=== PATIENT | male | born 1955 | race Caucasian/White ===

== ENCOUNTER 2016-09-25 11:16 | Outpatient (RCR) | payer BC ==
--- OUTSIDE RECORDS SUMMARY | 2016-06-29 09:37 | XMS REPORT | Continuity of Care Document ---
Author Author [facility] Organization [facility] Address Unknown Phone Unavailable Care Team Providers Care Crushing Foreman Name Role Phone Magaly Page PCP [phone] Source Comments Some departments are not documenting in the electronic medical record. If you do not see the information that you expected, contact Release of Information in the Health Information Management department at [phone] for further assistance in locating additional records.[facility] Active Allergies and Adverse Reactions Allergen Noted Date Severity Reactions Comments Penicillins 12/05/2004 Medium Allergy recorded in SMS: PENNCILLIN~Reactions: SWELLING Sulfa (Sulfonamide 12/05/2004 Medium Allergy recorded in SMS: Antibiotics) Sulfa~Reactions: RASH Current Medications Prescription Sig. Disp. Refills Start End Date Status Date levothyroxine (SYNTHROID) 1 Tab daily. 90 Tab 3 01/22/20 Active 75 mcg tablet 14 rosuvastatin (CRESTOR) 40 Takes 40mg every 5 days Active mg tablet fluticasone (FLONASE) 50 Apply 2 Sprays to each Active mcg/actuation nasal spray nostril as directed daily. albuterol (VENTOLIN HFA, Inhale 2 Puffs by mouth Active PROAIR HFA) 90 every 6 hours as needed mcg/actuation inhaler for Wheezing. omeprazole DR(+) TAKE ONE CAPSULE BY MOUTH 180 Cap 2 01/27/20 Active (PRILOSEC) 40 mg capsule TWICE A DAY 30 MINUTES 16 BEFORE A MEAL levoFLOXacin (LEVAQUIN) Take 500 mg by mouth Active 500 mg tablet daily. 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 Symptoms improved for a week or so, but then his symptoms recurred and he has been hoarse since that time, hoarseness gets progessively worse throughout the day New left vocal cord paralysis 03/28/15: CT neck showed post-surgical changes in right hypopharynx and piriform sinus, no residual/recurrent mass, no LAD 05/26/15: PET showed development of small left paratracheal metabolically active LN, concerning for metastatic disease 06/06/15: Underwent CT guided FNA biopsy of left paratracheal nodule unsuccessful 06/28/15: S/p central neck dissection and left hemithyroid, frozen positive for SCCa, A. Fibrous tissue, "left paratracheal mass", resection: Metastatic squamous cell carcinoma. B. Thyroid, "left hemithyroid", left hemithyroidectomy:Benign thyroid tissue. C. Fibrous tissue, "left paratracheal mass #2", resection:Metastatic squamous cell carcinoma. D. Fibrous tissue, "left paratracheal mass", resection:Metastatic squamous cell carcinoma. L ast Assessment & Plan: He i shere medical oncology consultation. He is healign well after recent central neck dissection. No pain. I reviewed above reports, prior treatment and recent pathology. His current radiation field has overlap with prior 70 Gy radiation. Addition of concurrent chemotherapy likely will increase local toxicity (shortterm and usp) significantly for potential small benefit for local control. I discussed potential risk and benefit of additional chemotherapy, recommend radiation alone and follow up. I answered all questions and provided contact information if he has any further questions. Cavitary lesion of lung 11/17/2010 Dysphagia 11/17/2010 History of radiation therapy 11/17/2010 Most Recent Encounters Date Type Specialty Providers Description 05/22/2016 Telephone Otolaryngology Marlin Grace MD Follow-up Phone Call 05/02/2016 Orders Only Otolaryngology Marlin Graec MD Cancer of pyriform sinus (HCC) (Primary Dx) 05/02/2016 Documentation Otolaryngology Marlin Grace MD 04/27/2016 Office Visit Radiation Therapy Debby Arnold MD Cavitary lesion of lung (Primary Dx) 04/18/2016 Cancer Otolaryngology Marlin Grace MD Conference 04/11/2016 Hospital Radiology Debby Arnold MD Encounter 04/11/2016 Hospital Radiology Marlin Grace MD Encounter 04/11/2016 Screening Form 04/11/2016 Ancillary Radiation Therapy Debby Arnold MD Cancer of hypopharynx Orders (HCC) (Primary Dx) Social History Tobacco Use Types Packs/Day Years Used Date Former Smoker Cigarettes 2 20 Quit: 07/29/1979 Smokeless Tobacco: Never Used Alcohol Use Drinks/Week oz/Week Comments No Last Filed Vital Signs Vital Sign Reading Time Taken Blood Pressure 124/92 04/27/2016 9:47 AM CDT Pulse 74 04/27/2016 9:47 AM CDT Temperature 36.6 C (97.9 F) 04/27/2016 9:47 AM CDT Respiratory Rate 18 01/19/2016 11:25 AM CDT Height 1.676 m (5' 5.98") 04/27/2016 9:47 AM CDT Weight 76.658 kg (169 lb) 04/27/2016 9:47 AM CDT Body Mass Index 27.29 04/27/2016 9:47 AM CDT Oxygen Saturation 100% 04/27/2016 9:47 AM CDT Plan of Care Health Maintenance Due Date Last Done Comments Hepatitis C Screening 1954 Physical (Comprehensive) 1961 Exam Pertussis Vaccine 1965 Tetanus Vaccine 1971 Colorectal Cancer 2004 Screening Shingles Vaccine 2014 Influenza Vaccine 03/29/2016 Results from Last 3 Months NM PET SCAN TORSO (SKULL-THIGHS) (04/11/2016 12:14 PM) Impressions 1.Persistent focal increased uptake involving a left paratracheal soft tissue nodule which may represent recurrent neoplasm. 2.Area of increased uptake in the region of the right vocal cords which is unchanged from prior study and likely posttherapeutic in nature. 3.No scintigraphic evidence of regional jacqueline or distant metastases. Approved by Flynn Gutiérrez M.D. on 04/11/2016 3:08 PM By my electronic signature, I attest that I have personally reviewed the images for this examination and formulated the interpretations and opinions expressed in this report Finalized by Prashant Fermin M.D. on 04/11/2016 5:16 PM. Dictated by Flynn Gutiérrez M.D. on 04/11/2016 1:43 PM. Narrative PET/CT NECK, CHEST, ABDOMEN AND PELVIS CLINICAL HISTORY: 60-year-old male, history of recurrent H&N cancer, s/p surgery and XRT x 2. History of radiation therapy. Hoarseness of voice. Bilateral vocal cord paralysis. RADIOPHARMACEUTICAL: 16.6 mCi IV Fluorine-18 fluorodeoxyglucose (FDG) BLOOD GLUCOSE LEVEL AT THE TIME OF RADIOPHARMACEUTICAL ADMINISTRATION: 95 mg / dL TECHNIQUE: Routine PET images ranging from the base of the skull to the upper thighs were obtained 60 minutes after IV administration of F-18 Fluorodeoxyglucose (FDG). PET images were reviewed in standard orthogonal projections. Low dose non- contrast CT imaging was performed for attenuation correction and localization purposes. COMPARISON: PET/CT from May 26, 2015 FINDINGS: Mean hepatic SUV 2.39, previously 2.78. Physiologic uptake of F-18 Fluorodeoxyglucose (FDG) tracer is seen within the brain, heart, kidneys, bladder, and bowel. Head / Neck: Interval left hemithyroidectomy and neck dissection. Focal area of increased uptake in the left paratracheal region that corresponds to left paratracheal soft tissue nodule on attenuated CT images measuring maximum SUV of 6.56 (index 245) previously 6.22. There is mild asymmetric uptake adjacent to the right vocal cords measuring maximum SUV of 6.73 (index 205) compared to 6.4 previously which is likely posttherapeutic in nature. Chest: No metabolically active nodes are visualized in the chest. Abdomen / Pelvis: No metabolically active nodes are visualized in the abdomen or pelvis. Osseous Structures: No metabolically active areas are visualized in the osseous structures. Additional low-dose CT findings: Calcified coronary artery disease. Dependent atelectasis in both lung bases. Calcified granuloma in the right upper lobe. Residual contrast noted throughout the renal collecting system. Procedure Note Interface, Radiant Results - SatApr 11, 2016 5:19 PM CDT PET/CT NECK, CHEST, ABDOMEN AND PELVIS CLINICAL HISTORY: 60-year-old male, history of recurrent H&N cancer, s/p surgery and XRT x 2. History of radiation therapy. Hoarseness of voice. Bilateral vocal cord paralysis. RADIOPHARMACEUTICAL: 16.6 mCi IV Fluorine-18 fluorodeoxyglucose (FDG) BLOOD GLUCOSE LEVEL AT THE TIME OF RADIOPHARMACEUTICAL ADMINISTRATION: 95 mg / dL TECHNIQUE: Routine PET images ranging from the base of the skull to the upper thighs were obtained 60 minutes after IV administration of F-18 Fluorodeoxyglucose (FDG). PET images were reviewed in standard orthogonal projections. Low dose non- contrast CT imaging was performed for attenuation correction and localization purposes. COMPARISON: PET/CT from May 26, 2015 FINDINGS: Mean hepatic SUV 2.39, previously 2.78. Physiologic uptake of F-18 Fluorodeoxyglucose (FDG) tracer is seen within the brain, heart, kidneys, bladder, and bowel. Head / Neck: Interval left hemithyroidectomy and neck dissection. Focal area of increased uptake in the left paratracheal region that corresponds to left paratracheal soft tissue nodule on attenuated CT images measuring maximum SUV of 6.56 (index 245) previously 6.22. There is mild asymmetric uptake adjacent to the right vocal cords measuring maximum SUV of 6.73 (index 205) compared to 6.4 previously which is likely posttherapeutic in nature. Chest: No metabolically active nodes are visualized in the chest. Abdomen / Pelvis: No metabolically active nodes are visualized in the abdomen or pelvis. Osseous Structures: No metabolically active areas are visualized in the osseous structures. Additional low-dose CT findings: Calcified coronary artery disease. Dependent atelectasis in both lung bases. Calcified granuloma in the right upper lobe. Residual contrast noted throughout the renal collecting system. IMPRESSION 1. Persistent focal increased uptake involving a left paratracheal soft tissue nodule which may represent recurrent neoplasm. 2. Area of increased uptake in the region of the right vocal cords which is unchanged from prior study and likely posttherapeutic in nature. 3. No scintigraphic evidence of regional jacqueline or distant metastases. Approved by Flynn Gutiérrez M.D. on 04/11/2016 3:08 PM By my electronic signature, I attest that I have personally reviewed the images for this examination and formulated the interpretations and opinions expressed in this report Finalized by Prashant Fermin M.D. on 04/11/2016 5:16 PM. Dictated by Flynn Gutiérrez M.D. on 04/11/2016 1:[address] NECK W CONTRAST (04/11/2016 12:03 PM) Impressions 1. Stable appearance to the patient's neck CT scan. No evidence for lymphadenopathy or recurrent neck mass. 2. Stable appearance to left medial deviation of the vocal cord and aryepiglottic fold compatible with vocal cord paralysis. Finalized by Humble Melton M.D. on 04/11/2016 3:35 PM. Dictated by Humble Melton M.D. on 04/11/2016 3:[address] Neck with Contrast Clinical Indication: Male, 60 years old. Hypopharyngeal carcinoma, dysphonia Technique: Multiple contiguous axial images were obtained through the neck following the administration of IV contrast material. Post processing coronal and sagittal reconstruction images were made from the axial images. Comparison: January 19, 2016 Findings: Brain and Orbits: Normal. Sinuses and Mastoids: Normal. Suprahyoid Neck: Normal oral cavity, oropharynx, parapharyngeal space, and retropharyngeal space. Infrahyoid Neck: Prior right neck dissection. Similar appearance to asymmetry of the vocal cords with medialization of the left true vocal cord and aryepiglottic fold. Stable effacement of the right piriform sinus. Lymph Nodes: Normal. Parotid and Submandibular Glands: Normal. Thyroid: Left hemithyroidectomy with some soft tissue thickening related to postsurgical change similar to prior study. Vasculature: Mild atherosclerotic plaque at the origin of the right internal carotid artery and mid left common carotid artery with no high-grade stenosis. Osseous Structures: Moderate degenerative disc disease C5-6, C6-7. No aggressive lesion identified. Thoracic inlet: Normal upper lungs and mediastinum. Procedure Note Interface, Radiant Results - SatApr 11, 2016 3:[address] Neck with Contrast Clinical Indication: Male, 60 years old. Hypopharyngeal carcinoma, dysphonia Technique: Multiple contiguous axial images were obtained through the neck following the administration of IV contrast material. Post processing coronal and sagittal reconstruction images were made from the axial images. Comparison: January 19, 2016 Findings: Brain and Orbits: Normal. Sinuses and Mastoids: Normal. Suprahyoid Neck: Normal oral cavity, oropharynx, parapharyngeal space, and retropharyngeal space. Infrahyoid Neck: Prior right neck dissection. Similar appearance to asymmetry of the vocal cords with medialization of the left true vocal cord and aryepiglottic fold. Stable effacement of the right piriform sinus. Lymph Nodes: Normal. Parotid and Submandibular Glands: Normal. Thyroid: Left hemithyroidectomy with some soft tissue thickening related to postsurgical change similar to prior study. Vasculature: Mild atherosclerotic plaque at the origin of the right internal carotid artery and mid left common carotid artery with no high-grade stenosis. Osseous Structures: Moderate degenerative disc disease C5-6, C6-7. No aggressive lesion identified. Thoracic inlet: Normal upper lungs and mediastinum. IMPRESSION 1. Stable appearance to the patient's neck CT scan. No evidence for lymphadenopathy or recurrent neck mass. 2. Stable appearance to left medial deviation of the vocal cord and aryepiglottic fold compatible with vocal cord paralysis. Finalized by Humble Melton M.D. on 04/11/2016 3:35 PM. Dictated by Humble Melton M.D. on 04/11/2016 3:20 PM. POC CREATININE, RAD (04/11/2016 11:06 AM) Component Value Range Creatinine, POC 1.2 0.4-1.24 MG/DL
[2016-07-11 09:05] LABS: BASOPHILS % (AUTO) 0 % (0-10); EOSINOPHILS % (AUTO) 0 % (0-10); LYMPHOCYTES # (AUTO) 0.5 X 10^3 (1.0-4.0); LYMPHOCYTES % (AUTO) 4 % (12-44); MEAN CORPUSCULAR HEMOGLOBIN 29 PG (25-34); MEAN CORPUSCULAR HGB CONC 34 G/DL (32-36); MEAN CORPUSCULAR VOLUME 84 FL (80-99); MONOCYTES # (AUTO) 0.2 X 10^3 (0.0-1.0); MONOCYTES % (AUTO) 2 % (0-12); NEUTROPHILS # (AUTO) 10.2 X 10^3 (1.8-7.8); NEUTROPHILS % (AUTO) 94 % (42-75); PLATELET COUNT 306 10^3/uL (130-400); RED BLOOD COUNT 4.99 10^6/uL (4.35-5.85); RED CELL DISTRIBUTION WIDTH 14.1 % (10.0-14.5); WHITE BLOOD COUNT 10.8 10^3/uL (4.3-11.0)
[2016-07-11 09:45] LABS: ALANINE AMINOTRANSFERASE 41 U/L (0-55); ALBUMIN 4.7 G/DL (3.2-4.5); ANION GAP 10 MMOL/L (5-14); ASPARTATE AMINO TRANSFERASE 32 U/L (5-34); BILIRUBIN,TOTAL 0.3 MG/DL (0.1-1.0); BLOOD UREA NITROGEN 16 MG/DL (7-18); BUN/CREATININE RATIO 17; CALCIUM 9.5 MG/DL (8.5-10.1); CARBON DIOXIDE 22 MMOL/L (21-32); CHLORIDE 100 MMOL/L (98-107); CREATININE SERUM 0.95 MG/DL (0.60-1.30); GFR ESTIMATED > 60; GLUCOSE 133 MG/DL (70-105); MAGNESIUM 2.2 MG/DL (1.8-2.4); POTASSIUM 4.4 MMOL/L (3.6-5.0); SODIUM 132 MMOL/L (135-145); TOTAL PROTEIN 7.2 G/DL (6.4-8.2)
[2016-07-18 11:20] LABS: BASOPHILS # (AUTO) 0.1 10^3/uL (0.0-0.1); BASOPHILS % (AUTO) 2 % (0-10); EOSINOPHILS # (AUTO) 0.1 10^3/uL (0.0-0.3); EOSINOPHILS % (AUTO) 2 % (0-10); LYMPHOCYTES # (AUTO) 0.8 X 10^3 (1.0-4.0); LYMPHOCYTES % (AUTO) 26 % (12-44); MEAN CORPUSCULAR HEMOGLOBIN 28 PG (25-34); MEAN CORPUSCULAR HGB CONC 34 G/DL (32-36); MEAN CORPUSCULAR VOLUME 84 FL (80-99); MONOCYTES # (AUTO) 0.3 X 10^3 (0.0-1.0); MONOCYTES % (AUTO) 10 % (0-12); NEUTROPHILS # (AUTO) 1.8 X 10^3 (1.8-7.8); NEUTROPHILS % (AUTO) 60 % (42-75); PLATELET COUNT 172 10^3/uL (130-400); RED BLOOD COUNT 4.68 10^6/uL (4.35-5.85); RED CELL DISTRIBUTION WIDTH 14.3 % (10.0-14.5); WHITE BLOOD COUNT 2.9 10^3/uL (4.3-11.0)
[2016-07-18 12:14] LABS: CALCIUM 9.2 MG/DL (8.5-10.1); CREATININE SERUM 1.29 MG/DL (0.60-1.30); POTASSIUM 5.5 MMOL/L (3.6-5.0)
[2016-07-25 10:46] LABS: BASOPHILS # (AUTO) 0.1 10^3/uL (0.0-0.1); BASOPHILS % (AUTO) 1 % (0-10); EOSINOPHILS % (AUTO) 0 % (0-10); LYMPHOCYTES # (AUTO) 0.5 X 10^3 (1.0-4.0); LYMPHOCYTES % (AUTO) 11 % (12-44); MEAN CORPUSCULAR HEMOGLOBIN 29 PG (25-34); MEAN CORPUSCULAR HGB CONC 34 G/DL (32-36); MEAN CORPUSCULAR VOLUME 85 FL (80-99); MEAN PLATELET VOLUME 9.1 FL (7.4-10.4); MONOCYTES # (AUTO) 1.3 X 10^3 (0.0-1.0); MONOCYTES % (AUTO) 28 % (0-12); NEUTROPHILS # (AUTO) 2.8 X 10^3 (1.8-7.8); NEUTROPHILS % (AUTO) 60 % (42-75); PLATELET COUNT 214 10^3/uL (130-400); RED BLOOD COUNT 4.34 10^6/uL (4.35-5.85); RED CELL DISTRIBUTION WIDTH 14.3 % (10.0-14.5); WHITE BLOOD COUNT 4.7 10^3/uL (4.3-11.0)
[2016-07-25 11:10] LABS: ANION GAP 8 MMOL/L (5-14); BLOOD UREA NITROGEN 19 MG/DL (7-18); BUN/CREATININE RATIO 16; CALCIUM 9.1 MG/DL (8.5-10.1); CARBON DIOXIDE 26 MMOL/L (21-32); CHLORIDE 101 MMOL/L (98-107); CREATININE SERUM 1.19 MG/DL (0.60-1.30); GFR ESTIMATED > 60; GLUCOSE 92 MG/DL (70-105); POTASSIUM 5.2 MMOL/L (3.6-5.0); SODIUM 135 MMOL/L (135-145)
[2016-08-01 13:12] LABS: BASOPHILS % (AUTO) 0 % (0-10); EOSINOPHILS % (AUTO) 0 % (0-10); LYMPHOCYTES # (AUTO) 0.5 X 10^3 (1.0-4.0); LYMPHOCYTES % (AUTO) 3 % (12-44); MEAN CORPUSCULAR HEMOGLOBIN 28 PG (25-34); MEAN CORPUSCULAR HGB CONC 34 G/DL (32-36); MEAN CORPUSCULAR VOLUME 83 FL (80-99); MEAN PLATELET VOLUME 8.6 FL (7.4-10.4); MONOCYTES # (AUTO) 0.2 X 10^3 (0.0-1.0); MONOCYTES % (AUTO) 1 % (0-12); NEUTROPHILS # (AUTO) 16.4 X 10^3 (1.8-7.8); NEUTROPHILS % (AUTO) 96 % (42-75); PLATELET COUNT 267 10^3/uL (130-400); RED BLOOD COUNT 4.14 10^6/uL (4.35-5.85); RED CELL DISTRIBUTION WIDTH 14.3 % (10.0-14.5); WHITE BLOOD COUNT 17.1 10^3/uL (4.3-11.0)
[2016-08-01 13:40] LABS: ALANINE AMINOTRANSFERASE 25 U/L (0-55); ALBUMIN 4.5 G/DL (3.2-4.5); ANION GAP 10 MMOL/L (5-14); ASPARTATE AMINO TRANSFERASE 20 U/L (5-34); BILIRUBIN,TOTAL 0.3 MG/DL (0.1-1.0); BLOOD UREA NITROGEN 24 MG/DL (7-18); BUN/CREATININE RATIO 21; CALCIUM 9.4 MG/DL (8.5-10.1); CARBON DIOXIDE 22 MMOL/L (21-32); CHLORIDE 102 MMOL/L (98-107); CREATININE SERUM 1.17 MG/DL (0.60-1.30); GFR ESTIMATED > 60; GLUCOSE 165 MG/DL (70-105); MAGNESIUM 2.4 MG/DL (1.8-2.4); POTASSIUM 4.1 MMOL/L (3.6-5.0); SODIUM 134 MMOL/L (135-145); TOTAL PROTEIN 6.9 G/DL (6.4-8.2)
[2016-08-08 10:51] LABS: BASOPHILS % (AUTO) 1 % (0-10); EOSINOPHILS # (AUTO) 0.1 10^3/uL (0.0-0.3); EOSINOPHILS % (AUTO) 5 % (0-10); LYMPHOCYTES # (AUTO) 0.7 X 10^3 (1.0-4.0); LYMPHOCYTES % (AUTO) 36 % (12-44); MEAN CORPUSCULAR HEMOGLOBIN 28 PG (25-34); MEAN CORPUSCULAR HGB CONC 34 G/DL (32-36); MEAN CORPUSCULAR VOLUME 83 FL (80-99); MEAN PLATELET VOLUME 9.6 FL (7.4-10.4); MONOCYTES # (AUTO) 0.2 X 10^3 (0.0-1.0); MONOCYTES % (AUTO) 11 % (0-12); NEUTROPHILS # (AUTO) 0.9 X 10^3 (1.8-7.8); NEUTROPHILS % (AUTO) 47 % (42-75); PLATELET COUNT 204 10^3/uL (130-400); RED BLOOD COUNT 4.25 10^6/uL (4.35-5.85); RED CELL DISTRIBUTION WIDTH 14.1 % (10.0-14.5); WHITE BLOOD COUNT 1.8 10^3/uL (4.3-11.0)
[2016-08-08 12:06] LABS: CALCIUM 9.6 MG/DL (8.5-10.1); CREATININE SERUM 1.29 MG/DL (0.60-1.30); POTASSIUM 5.5 MMOL/L (3.6-5.0)
[2016-08-29 13:07] LABS: BASOPHILS % (AUTO) 0 % (0-10); EOSINOPHILS % (AUTO) 0 % (0-10); LYMPHOCYTES # (AUTO) 0.4 X 10^3 (1.0-4.0); LYMPHOCYTES % (AUTO) 5 % (12-44); MEAN CORPUSCULAR HEMOGLOBIN 29 PG (25-34); MEAN CORPUSCULAR HGB CONC 34 G/DL (32-36); MEAN CORPUSCULAR VOLUME 85 FL (80-99); MEAN PLATELET VOLUME 8.3 FL (7.4-10.4); MONOCYTES # (AUTO) 0.1 X 10^3 (0.0-1.0); MONOCYTES % (AUTO) 1 % (0-12); NEUTROPHILS # (AUTO) 7.1 X 10^3 (1.8-7.8); NEUTROPHILS % (AUTO) 94 % (42-75); PLATELET COUNT 299 10^3/uL (130-400); RED BLOOD COUNT 3.81 10^6/uL (4.35-5.85); WHITE BLOOD COUNT 7.5 10^3/uL (4.3-11.0)
[2016-08-29 13:31] LABS: ALANINE AMINOTRANSFERASE 17 U/L (0-55); ALBUMIN 4.4 G/DL (3.2-4.5); ANION GAP 10 MMOL/L (5-14); ASPARTATE AMINO TRANSFERASE 19 U/L (5-34); BILIRUBIN,TOTAL 0.3 MG/DL (0.1-1.0); BLOOD UREA NITROGEN 17 MG/DL (7-18); BUN/CREATININE RATIO 16; CARBON DIOXIDE 23 MMOL/L (21-32); CHLORIDE 101 MMOL/L (98-107); CREATININE SERUM 1.07 MG/DL (0.60-1.30); GFR ESTIMATED > 60; GLUCOSE 191 MG/DL (70-105); POTASSIUM 4.3 MMOL/L (3.6-5.0); SODIUM 134 MMOL/L (135-145); TOTAL PROTEIN 6.6 G/DL (6.4-8.2)
[2016-08-29 13:52] LABS: THYROID STIMULATING HORMONE 10.26 UIU/ML (0.35-4.94)
[2016-09-05 10:38] LABS: BASOPHILS % (AUTO) 1 % (0-10); EOSINOPHILS % (AUTO) 1 % (0-10); LYMPHOCYTES # (AUTO) 0.7 X 10^3 (1.0-4.0); LYMPHOCYTES % (AUTO) 27 % (12-44); MEAN CORPUSCULAR HEMOGLOBIN 29 PG (25-34); MEAN CORPUSCULAR HGB CONC 34 G/DL (32-36); MEAN CORPUSCULAR VOLUME 85 FL (80-99); MEAN PLATELET VOLUME 8.3 FL (7.4-10.4); MONOCYTES # (AUTO) 0.3 X 10^3 (0.0-1.0); MONOCYTES % (AUTO) 11 % (0-12); NEUTROPHILS # (AUTO) 1.5 X 10^3 (1.8-7.8); NEUTROPHILS % (AUTO) 60 % (42-75); PLATELET COUNT 231 10^3/uL (130-400); RED BLOOD COUNT 3.46 10^6/uL (4.35-5.85); RED CELL DISTRIBUTION WIDTH 15.4 % (10.0-14.5); WHITE BLOOD COUNT 2.5 10^3/uL (4.3-11.0)
[2016-09-05 11:14] LABS: ANION GAP 10 MMOL/L (5-14); BLOOD UREA NITROGEN 26 MG/DL (7-18); BUN/CREATININE RATIO 26; CALCIUM 9.2 MG/DL (8.5-10.1); CARBON DIOXIDE 27 MMOL/L (21-32); CHLORIDE 98 MMOL/L (98-107); GFR ESTIMATED > 60; GLUCOSE 85 MG/DL (70-105); SODIUM 135 MMOL/L (135-145)
[2016-09-05 11:37] LABS: THYROID STIMULATING HORMONE 30.11 UIU/ML (0.35-4.94)
[2016-09-11 13:26] LABS: BASOPHILS % (AUTO) 1 % (0-10); EOSINOPHILS % (AUTO) 0 % (0-10); LYMPHOCYTES # (AUTO) 0.8 X 10^3 (1.0-4.0); LYMPHOCYTES % (AUTO) 30 % (12-44); MEAN CORPUSCULAR HEMOGLOBIN 29 PG (25-34); MEAN CORPUSCULAR HGB CONC 33 G/DL (32-36); MEAN CORPUSCULAR VOLUME 88 FL (80-99); MEAN PLATELET VOLUME 8.3 FL (7.4-10.4); MONOCYTES # (AUTO) 0.8 X 10^3 (0.0-1.0); MONOCYTES % (AUTO) 32 % (0-12); NEUTROPHILS % (AUTO) 38 % (42-75); PLATELET COUNT 211 10^3/uL (130-400); RED BLOOD COUNT 3.29 10^6/uL (4.35-5.85); RED CELL DISTRIBUTION WIDTH 16.5 % (10.0-14.5); WHITE BLOOD COUNT 2.7 10^3/uL (4.3-11.0)
[2016-09-11 13:52] LABS: ALANINE AMINOTRANSFERASE 24 U/L (0-55); ALBUMIN 4.2 G/DL (3.2-4.5); ANION GAP 10 MMOL/L (5-14); ASPARTATE AMINO TRANSFERASE 27 U/L (5-34); BILIRUBIN,TOTAL 0.2 MG/DL (0.1-1.0); BLOOD UREA NITROGEN 16 MG/DL (7-18); BUN/CREATININE RATIO 16; CARBON DIOXIDE 25 MMOL/L (21-32); CHLORIDE 102 MMOL/L (98-107); CREATININE SERUM 1.02 MG/DL (0.60-1.30); GFR ESTIMATED > 60; GLUCOSE 106 MG/DL (70-105); POTASSIUM 4.2 MMOL/L (3.6-5.0); SODIUM 137 MMOL/L (135-145); TOTAL PROTEIN 6.4 G/DL (6.4-8.2)
[2016-09-19 13:43] LABS: BASOPHILS % (AUTO) 0 % (0-10); EOSINOPHILS % (AUTO) 0 % (0-10); LYMPHOCYTES # (AUTO) 1.1 X 10^3 (1.0-4.0); LYMPHOCYTES % (AUTO) 11 % (12-44); MEAN CORPUSCULAR HEMOGLOBIN 30 PG (25-34); MEAN CORPUSCULAR HGB CONC 34 G/DL (32-36); MEAN CORPUSCULAR VOLUME 89 FL (80-99); MONOCYTES # (AUTO) 0.8 X 10^3 (0.0-1.0); MONOCYTES % (AUTO) 7 % (0-12); NEUTROPHILS # (AUTO) 8.6 X 10^3 (1.8-7.8); NEUTROPHILS % (AUTO) 82 % (42-75); PLATELET COUNT 181 10^3/uL (130-400); RED BLOOD COUNT 3.19 10^6/uL (4.35-5.85); WHITE BLOOD COUNT 10.5 10^3/uL (4.3-11.0)
[2016-09-19 14:09] LABS: ALANINE AMINOTRANSFERASE 21 U/L (0-55); ALBUMIN 4.2 G/DL (3.2-4.5); ANION GAP 11 MMOL/L (5-14); ASPARTATE AMINO TRANSFERASE 18 U/L (5-34); BILIRUBIN,TOTAL 0.2 MG/DL (0.1-1.0); BLOOD UREA NITROGEN 24 MG/DL (7-18); BUN/CREATININE RATIO 23; CALCIUM 8.8 MG/DL (8.5-10.1); CARBON DIOXIDE 24 MMOL/L (21-32); CHLORIDE 101 MMOL/L (98-107); CREATININE SERUM 1.03 MG/DL (0.60-1.30); GFR ESTIMATED > 60; GLUCOSE 111 MG/DL (70-105); POTASSIUM 3.4 MMOL/L (3.6-5.0); SODIUM 136 MMOL/L (135-145); TOTAL PROTEIN 6.1 G/DL (6.4-8.2)
[2016-09-19 14:29] LABS: THYROID STIMULATING HORMONE 25.64 UIU/ML (0.35-4.94)
[~2016-09-25] VITALS: Ht 167.6 cm; Wt 79.8 kg
[~2016-09-25 11:16] MED LIST: ALB0.5V; CARBOPLATIN IV SCH; CYCL10TA9 PO; D5W IV SCH; DEXA4TAB PO; DOCETAXEL IV SCH; FAMOTIDINE 20MG/2ML IV (CANCER CTR) IV SCH; FOSAPREPITANT 150 MG/NS 150 MG IVPB (CANCER CTR) IV PRN; HYDR-3729 PO; LEVO75TA6 PO; NFPRILOC40 PO; NORMAL SALINE IV SCH; NS IV 500 ML (CANCER CENTER) IV SCH; PALONOSETRON 0.25 MG, DEXAMETHASONE 10 MG/NS 50 ML IVPB IV PRN; diphenhydrAMINE 25 MG TAB (BENADRYL) CANCER CENTER PO SCH
[2016-09-25 11:32] LABS: BASOPHILS # (AUTO) 0.1 10^3/uL (0.0-0.1); BASOPHILS % (AUTO) 2 % (0-10); EOSINOPHILS # (AUTO) 0.1 10^3/uL (0.0-0.3); EOSINOPHILS % (AUTO) 3 % (0-10); LYMPHOCYTES # (AUTO) 0.7 X 10^3 (1.0-4.0); LYMPHOCYTES % (AUTO) 23 % (12-44); MEAN CORPUSCULAR HEMOGLOBIN 30 PG (25-34); MEAN CORPUSCULAR HGB CONC 34 G/DL (32-36); MEAN CORPUSCULAR VOLUME 87 FL (80-99); MEAN PLATELET VOLUME 9.1 FL (7.4-10.4); MONOCYTES # (AUTO) 0.1 X 10^3 (0.0-1.0); MONOCYTES % (AUTO) 5 % (0-12); NEUTROPHILS # (AUTO) 2.1 X 10^3 (1.8-7.8); NEUTROPHILS % (AUTO) 68 % (42-75); PLATELET COUNT 186 10^3/uL (130-400); RED BLOOD COUNT 3.41 10^6/uL (4.35-5.85); RED CELL DISTRIBUTION WIDTH 16.6 % (10.0-14.5); WHITE BLOOD COUNT 3.1 10^3/uL (4.3-11.0)
[2016-09-25 12:01] LABS: ANION GAP 10 MMOL/L (5-14); BLOOD UREA NITROGEN 20 MG/DL (7-18); BUN/CREATININE RATIO 21; CARBON DIOXIDE 25 MMOL/L (21-32); CHLORIDE 96 MMOL/L (98-107); CREATININE SERUM 0.95 MG/DL (0.60-1.30); GFR ESTIMATED > 60; GLUCOSE 91 MG/DL (70-105); POTASSIUM 5.1 MMOL/L (3.6-5.0); SODIUM 131 MMOL/L (135-145)
== END 2016-09-27 | disposition home or self-care (01) ==
LOC: ONC 11:16
PROVIDERS: ATTEND Internal Medicine Hematology & Oncology
DX: Z51.11 Encounter for antineoplastic chemotherapy (principal); C14.0 Malignant neoplasm of pharynx, unspecified; E89.0 Postprocedural hypothyroidism; D64.9 Anemia, unspecified; K21.9 Gastro-esophageal reflux disease without esophagitis; Z87.891 Personal history of nicotine dependence; Z92.3 Personal history of irradiation; Z79.899 Other long term (current) drug therapy
CPT/HCPCS: 36415; 36591; 80048; 80053; 82274; 82728; 83540; 83735; 84443; 85025; 96367; 96375; 96413; 96417; 99213; 99214

== ENCOUNTER → 2017-01-01 | Outpatient (RCR) | payer BC ==
--- OUTSIDE RECORDS SUMMARY | 2016-10-03 14:34 | XMS REPORT | Continuity of Care Document ---
Author Author [facility] Organization [facility] Address Unknown Phone Unavailable Care Team Providers Care Chain Puller Name Role Phone Magaly Page PCP [phone] Source Comments Some departments are not documenting in the electronic medical record. If you do not see the information that you expected, contact Release of Information in the Health Information Management department at [phone] for further assistance in locating additional records.[facility] Active Allergies and Adverse Reactions Allergen [...] hours as needed mcg/actuation inhaler for Wheezing. azithromycin (ZITHROMAX) Z-PHILIPPE: Take 2 tabs by 6 Tab 0 08/01/19 Active 250 mg tablet mouth on day 1, followed 17 by 1 tab by mouth daily on days 2-5. omeprazole DR(+) TAKE ONE CAPSULE BY MOUTH [...] - Diagnosed approximately 2003, s/p MRND - 2006: Recurrence, s/p laser excision, followed by Radiation therapy 70 Gy over 35 fractions, received no chemotherapy Left central neck lesion 10/2014: Patient began to have issues with his voice, initially treated with allergy medication, then z-philippe. Symptoms improved for a week or so, [...] likely will increase local toxicity (shortterm and shelter) significantly for potential small benefit for local control. I discussed potential risk and benefit of additional chemotherapy, recommend radiation alone and follow up. I answered all questions and provided contact information if he has any further questions. Cavitary lesion of lung 11/17/2010 Dysphagia 11/17/2010 History of radiation therapy 11/17/2010 Social History Tobacco Use Types Packs/Day Years [...] 2004 Screening Shingles Vaccine 2014 Influenza Vaccine 03/29/2017 Results from Last 3 Months Not on file
[2016-10-03 14:46] LABS: BASOPHILS % (AUTO) 0 % (0-10); EOSINOPHILS % (AUTO) 0 % (0-10); LYMPHOCYTES % (AUTO) 44 % (12-44); MEAN CORPUSCULAR HEMOGLOBIN 30 PG (25-34); MEAN CORPUSCULAR HGB CONC 34 G/DL (32-36); MEAN CORPUSCULAR VOLUME 89 FL (80-99); MEAN PLATELET VOLUME 8.5 FL (7.4-10.4); MONOCYTES # (AUTO) 0.9 X 10^3 (0.0-1.0); MONOCYTES % (AUTO) 39 % (0-12); NEUTROPHILS # (AUTO) 0.4 X 10^3 (1.8-7.8); NEUTROPHILS % (AUTO) 16 % (42-75); PLATELET COUNT 214 10^3/uL (130-400); RED BLOOD COUNT 2.88 10^6/uL (4.35-5.85); RED CELL DISTRIBUTION WIDTH 17.2 % (10.0-14.5); WHITE BLOOD COUNT 2.3 10^3/uL (4.3-11.0)
[2016-10-03 15:28] LABS: ANION GAP 10 MMOL/L (5-14); BLOOD UREA NITROGEN 14 MG/DL (7-18); BUN/CREATININE RATIO 14; CALCIUM 8.8 MG/DL (8.5-10.1); CARBON DIOXIDE 26 MMOL/L (21-32); CHLORIDE 100 MMOL/L (98-107); CREATININE SERUM 1.03 MG/DL (0.60-1.30); GFR ESTIMATED > 60; GLUCOSE 102 MG/DL (70-105); POTASSIUM 4.3 MMOL/L (3.6-5.0); SODIUM 136 MMOL/L (135-145)
[2016-10-10 15:01] LABS: BASOPHILS % (AUTO) 0 % (0-10); EOSINOPHILS % (AUTO) 1 % (0-10); LYMPHOCYTES # (AUTO) 1.1 X 10^3 (1.0-4.0); LYMPHOCYTES % (AUTO) 18 % (12-44); MEAN CORPUSCULAR HEMOGLOBIN 30 PG (25-34); MEAN CORPUSCULAR HGB CONC 33 G/DL (32-36); MEAN CORPUSCULAR VOLUME 91 FL (80-99); MEAN PLATELET VOLUME 8.7 FL (7.4-10.4); MONOCYTES # (AUTO) 0.7 X 10^3 (0.0-1.0); MONOCYTES % (AUTO) 12 % (0-12); NEUTROPHILS # (AUTO) 4.4 X 10^3 (1.8-7.8); NEUTROPHILS % (AUTO) 70 % (42-75); PLATELET COUNT 167 10^3/uL (130-400); RED BLOOD COUNT 3.09 10^6/uL (4.35-5.85); RED CELL DISTRIBUTION WIDTH 18.1 % (10.0-14.5); WHITE BLOOD COUNT 6.3 10^3/uL (4.3-11.0)
[2016-10-10 15:32] LABS: ALANINE AMINOTRANSFERASE 17 U/L (0-55); ALBUMIN 4.1 G/DL (3.2-4.5); ANION GAP 11 MMOL/L (5-14); ASPARTATE AMINO TRANSFERASE 18 U/L (5-34); BILIRUBIN,TOTAL 0.2 MG/DL (0.1-1.0); BLOOD UREA NITROGEN 21 MG/DL (7-18); BUN/CREATININE RATIO 19; CALCIUM 9.3 MG/DL (8.5-10.1); CARBON DIOXIDE 24 MMOL/L (21-32); CHLORIDE 103 MMOL/L (98-107); CREATININE SERUM 1.11 MG/DL (0.60-1.30); GFR ESTIMATED > 60; GLUCOSE 116 MG/DL (70-105); POTASSIUM 3.9 MMOL/L (3.6-5.0); SODIUM 138 MMOL/L (135-145); TOTAL PROTEIN 6.4 G/DL (6.4-8.2)
[2016-10-10 15:54] LABS: THYROID STIMULATING HORMONE 3.82 UIU/ML (0.35-4.94)
[2017-01-01 09:48] LABS: BASOPHILS % (AUTO) 0 % (0-10); EOSINOPHILS # (AUTO) 0.2 10^3/uL (0.0-0.3); EOSINOPHILS % (AUTO) 3 % (0-10); LYMPHOCYTES # (AUTO) 0.7 X 10^3 (1.0-4.0); LYMPHOCYTES % (AUTO) 10 % (12-44); MEAN CORPUSCULAR HEMOGLOBIN 29 PG (25-34); MEAN CORPUSCULAR HGB CONC 33 G/DL (32-36); MEAN CORPUSCULAR VOLUME 89 FL (80-99); MONOCYTES # (AUTO) 0.6 X 10^3 (0.0-1.0); MONOCYTES % (AUTO) 9 % (0-12); NEUTROPHILS # (AUTO) 5.4 X 10^3 (1.8-7.8); NEUTROPHILS % (AUTO) 78 % (42-75); PLATELET COUNT 248 10^3/uL (130-400); RED BLOOD COUNT 3.94 10^6/uL (4.35-5.85); RED CELL DISTRIBUTION WIDTH 13.2 % (10.0-14.5)
[2017-01-01 10:24] LABS: ALANINE AMINOTRANSFERASE 15 U/L (0-55); ALBUMIN 4.3 G/DL (3.2-4.5); ANION GAP 10 MMOL/L (5-14); ASPARTATE AMINO TRANSFERASE 17 U/L (5-34); BILIRUBIN,TOTAL 0.3 MG/DL (0.1-1.0); BLOOD UREA NITROGEN 26 MG/DL (7-18); BUN/CREATININE RATIO 23; CALCIUM 9.5 MG/DL (8.5-10.1); CARBON DIOXIDE 26 MMOL/L (21-32); CHLORIDE 103 MMOL/L (98-107); CREATININE SERUM 1.14 MG/DL (0.60-1.30); GFR ESTIMATED > 60; GLUCOSE 100 MG/DL (70-105); POTASSIUM 4.3 MMOL/L (3.6-5.0); SODIUM 139 MMOL/L (135-145); TOTAL PROTEIN 6.8 G/DL (6.4-8.2)
[2017-01-01 10:46] LABS: THYROID STIMULATING HORMONE 0.63 UIU/ML (0.35-4.94)
== END | disposition home or self-care (01) ==
LOC: ONC 10-03 14:31
PROVIDERS: ATTEND Internal Medicine Hematology & Oncology
DX: C14.0 Malignant neoplasm of pharynx, unspecified (principal); E89.0 Postprocedural hypothyroidism; K21.9 Gastro-esophageal reflux disease without esophagitis; J45.909 Unspecified asthma, uncomplicated; E78.5 Hyperlipidemia, unspecified; D70.1 Agranulocytosis secondary to cancer chemotherapy; T45.1X5A Adverse effect of antineoplastic and immunosuppressive drugs, initial encounter; Z87.891 Personal history of nicotine dependence; Z92.21 Personal history of antineoplastic chemotherapy; Z92.3 Personal history of irradiation; Z79.899 Other long term (current) drug therapy
CPT/HCPCS: 36415; 36591; 80048; 80053; 83735; 84443; 85025; 99213